=== PATIENT | female | born 1970 ===

== ENCOUNTER 2021-01-30 06:41 | Day surgery (SDC) | payer OTHER ==
[~2021-01-30 06:41] MED LIST: CITALOPRAM HBR10 MG PO; FOLIC ACID0.8 M1 PO; PLAQUENIL PO; TREXALL5 MG PO; WELLBUTRIN XL150 M1 PO
== END 2021-01-30 15:20 | disposition home or self-care (01) ==
LOC: CIR.AMB 06:41
PROVIDERS: ATTEND Orthopaedic Surgery
DX: M75.122 Complete rotator cuff tear or rupture of left shoulder, not specified as traumatic (principal); M75.22 Bicipital tendinitis, left shoulder; Z20.822 Contact with and (suspected) exposure to COVID-19